=== PATIENT | male | born 1955 | race Caucasian/White ===

== ENCOUNTER 2025-06-05 08:49 | Outpatient (CLI) | payer MEDICARE | END 2025-06-05 08:50 | disposition home or self-care (01) | LOC: CSHSLEEP 08:49 | PROVIDERS: ATTEND Family Medicine | DX: G47.33 Obstructive sleep apnea (adult) (pediatric) (principal); N18.31 Chronic kidney disease, stage 3a | CPT/HCPCS: 81001; 82570; 84156; 95800 ==